=== PATIENT | female | born 1950 ===

== ENCOUNTER → 2016-12-06 | Outpatient (CLI) | payer SELFPAY ==
[2016-12-06 11:27] LABS: BASOPHIL # 0.1 K/uL (0.0-0.2); BASOPHIL % 0.6 %; EOSINOPHIL # 0.2 K/uL (0.0-0.5); EOSINOPHIL % 2.1 %; HEMATOCRIT 33.1 % (33.0-46.0); IMMATURE GRANULOCYTE # 0.1 K/uL (0.0-0.3); IMMATURE GRANULOCYTE % 0.7 %; LYMPHOCYTE # 3.2 K/uL (0.8-4.0); LYMPHOCYTE % 27.4 %; MCH 26.8 pg (27.0-34.0); MCHC 30.2 gm/dL (32.0-36.5); MCV 88.7 fl (83.0-98.0); MONOCYTE # 0.9 K/uL (0.0-1.0); MONOCYTE % 7.7 %; MPV 11.4 fl (9.4-12.4); NEUTROPHIL # (ANC) 7.2 K/uL (1.8-7.8); NEUTROPHIL % 61.5 %; NRBC % 0 /100WBC (0-0.00); RBC 3.73 M/uL (3.50-5.50); RDW-CV 18.7 % (11.9-14.6); WBC 11.7 K/uL (4.0-11.0)
[2016-12-06 11:30] LABS: ANION GAP 13.2 (10.0-19.0); CALCIUM 7.9 mg/dL (8.5-10.5); CREATININE 1.6 mg/dL (0.5-1.1)
[2016-12-06 11:36] LABS: POTASSIUM 6.2 mMol/L (3.7-5.1)
[2016-12-06 12:25] LABS: PLATELET COUNT 368 K/uL (150-450)
== END | disposition disaster alternative care site (69) ==
LOC: LGSRV 11:13
PROVIDERS: Family Medicine
DX: D63.8 Anemia in other chronic diseases classified elsewhere (principal)